=== PATIENT | female | born 1995 | race Caucasian/White ===

== ENCOUNTER 2017-06-22 14:16 | Emergency (ER) | payer OTHER ==
[2017-06-22 14:27] VITALS: BP 126/65
[2017-06-22] MEDS ORDERED: DIPH/PERTUSS(ACELL)/TETANUS VAC/PF 0.5 ML SYR (>=10YO) IM ONE (14:58)
--- NOTE | 2017-06-22 14:58 | ER Document Report ---
HPI - HPI Pain Level: 2 Notes: Patient is a 22-year-old female presents the ED complaining of a puncture wound to her right wrist while she was at work today. Patient states that she turned and hit her wrist against a nail that was sticking out of a piece of wood. Patient states that right after she had that she did pull away. Patient states the nail was somewhat dirty but not leonidas and when in approximately 1 inch. Patient states that she still has sensation to her hand without any hematoma or loss of movement in her hand or fingers. Patient states that she has not had a tetanus and she was a young child. Denies any history of MRSA. The pain does not radiate otherwise. Pain is worsened with supination. Denies any drug allergies, daily medications, significant past medical history otherwise. Patient denies any smoking or drug use. Denies any fever, headache, URI, chest pain, palpitations, syncope, cough, wheeze, shortness of breath, abdominal pain , nausea/vomiting/diarrhea, muscle paralysis/weakness, numbness/tingling, or rash otherwise. - ROS Notes: REVIEW OF SYSTEMS: CONSTITUTIONAL : Denies fever, chills, or sweats. Denies recent illness. EENT: Denies eye, ear, throat, or mouth pain or symptoms. Denies nasal or sinus congestion or discharge. Denies throat, tongue, or mouth swelling or difficulty swallowing. CARDIOVASCULAR: Denies chest pain. Denies palpitations or racing or irregular heart beat. Denies ankle edema. RESPIRATORY: Denies cough, cold, or chest congestion. Denies shortness of breath, difficulty breathing, or wheezing. GASTROINTESTINAL: Denies abdominal pain or distention. Denies nausea, vomiting , or diarrhea. Denies blood in vomitus, stools, or per rectum. Denies black, tarry stools. Denies constipation. GENITOURINARY: Denies difficulty urinating, painful urination, burning, frequency, blood in urine, or discharge. MUSCULOSKELETAL: see hpi SKIN: see hpi NEUROLOGICAL: Denies confusion or altered mental status. Denies passing out or loss of consciousness. Denies dizziness or lightheadedness. Denies headache. Denies weakness or paralysis or loss of use of either side. Denies problems with gait or speech. Denies sensory loss, numbness, or tingling. ALL OTHER SYSTEMS REVIEWED AND NEGATIVE. Dictation was performed using Dragon voice recognition software Past Medical History - Social History Smoking Status: Never Smoker Family History: Reviewed & Not Pertinent Renal/ Medical History: Denies: Hx Peritoneal Dialysis - Immunizations Hx Diphtheria, Pertussis, Tetanus Vaccination: - unknown Vertical Provider Document - CONSTITUTIONAL Agree With Documented VS: Yes Notes: PHYSICAL EXAMINATION: GENERAL: Well-appearing, well-nourished and in no acute distress. LUNGS: Breath sounds clear to auscultation bilaterally and equal. No wheezes rales or rhonchi. HEART: Regular rate and rhythm without murmurs, rubs, gallops. Musculoskeletal: Rt wrist/hand: FROM to passive/active. Strength/quality improvement consultant 5+/5. Sensation intact. Luis test did not show any perfusion deficits b/l. Pulse 2+. Cap refill <2 sec. A small puncture wound is noted to the medial slightly anterior distal forearm. Tinel/phalen negative. Extremities: No cyanosis, clubbing, or edema b/l. Peripheral pulses 2+. Capillary refill less than 3 seconds. NEUROLOGICAL: Cranial nerves grossly intact. Normal speech, normal gait. Normal sensory, motor exams PSYCH: Normal mood, normal affect. SKIN: Warm, Dry, normal turgor, no rashes or lesions noted.--See MSK exam as well. - INFECTION CONTROL TRAVEL OUTSIDE OF THE [place] IN LAST 30 DAYS: No - RESPIRATORY O2 Sat by Pulse Oximetry: 99 Course - Re-evaluation Re-evalutation: 06/22/17 15:43 Patient is an afebrile, well-hydrated, 22-year-old female presents the ED with a puncture wound to her right wrist from a nail. Vitals are stable. PE otherwise unremarkable. Patient is neurovascularly intact distally. Low suspicion for any retained foreign body, sepsis, fracture, compartment syndrome , severe nerve or tendon trauma. Puncture site was cleansed with iodine and alcohol pads. Tdap given today. I will send her home with Augmentin twice a day for 10 days as prophylactic. Conservative measures otherwise for symptoms. Recheck/establish with PCM this week. Return to the ED with any worsening/ concerning symptoms otherwise as reviewed in discharge. Patient is in agreement. - Vital Signs Vital signs: Temp Pulse Resp BP Pulse Ox 98.0 F 67 16 126/65 H 99 06/22/17 14:25 06/22/17 14:25 06/22/17 14:25 06/22/17 14:25 06/22/17 14:25 Discharge - Discharge Clinical Impression: Puncture wound Condition: Stable Disposition: HOME, SELF-CARE Instructions: Puncture Wound ([facility]) Additional Instructions: Keep the wound clean Wash with soap and water Apply bacitracin daily Take antibiotic as directed Recheck/establish with your PCM this week Reviewed the puncture wound handout Return to the ED with any worsening symptoms and/or development of fever, headache, chest pain, palpitations, syncope, shortness of breath, trouble breathing, abdominal pain, n/v/d,muscle weakness/paralysis, numbness/tingling, or other worsening symptoms that are concerning to you. Prescriptions: Amox Tr/Potassium Clavulanate [Augmentin 875-125 Tablet] 1 tab PO BID #20 tablet Forms: Elevated Blood Pressure Referrals: [facility] - Follow up as needed [facility] [Provider Group] - Follow up as needed [facility] [Provider Group] - Follow up as needed [facility] [Provider Group] - Follow up as needed
--- NOTE | 2017-06-22 15:37 | RADIOLOGY REPORT (SQ) ---
EXAM DESCRIPTION: WRIST RIGHT 3 VIEWS COMPLETED DATE/TIME: 06/22/2017 3:29 pm REASON FOR STUDY: puncture wound rt medial wrist with nail COMPARISON: None. NUMBER OF VIEWS: Three views. TECHNIQUE: AP, lateral, and oblique radiographic images acquired of the right wrist. LIMITATIONS: None. FINDINGS: MINERALIZATION: Normal. BONES: No acute fracture or dislocation. No worrisome bone lesions. Normal alignment. SOFT TISSUES: No soft tissue swelling. No foreign body. OTHER: No other significant finding. IMPRESSION: NEGATIVE STUDY OF THE RIGHT WRIST. NO RADIOGRAPHIC EVIDENCE OF ACUTE INJURY. TECHNICAL DOCUMENTATION: JOB ID: [id number] [employer]- All Rights Reserved
== END 2017-06-22 16:01 | disposition home or self-care (01) ==
LOC: ER 14:16
DX: S61.531A Puncture wound without foreign body of right wrist, initial encounter (principal); W45.0XXA Nail entering through skin, initial encounter; Y99.0 Civilian activity done for income or pay; Z23 Encounter for immunization
CPT/HCPCS: 90471; 90715; 99283

== ENCOUNTER → 2017-12-02 | Outpatient (CLI) | payer BC ==
--- NOTE | 2017-12-02 10:58 | WOMENS IMAGING REPORT ---
EXAM DESCRIPTION: U/S PELVIS NON-OB LIMITED COMPLETED DATE/TIME: 12/02/2017 8:11 am REASON FOR STUDY: ABDOMINAL TENDERNESS R10.819 ABDOMINAL TENDERNESS, UNSPECIFIED SITE COMPARISON: None. TECHNIQUE: Dynamic and static grayscale images acquired of the pelvis via transabdominal approach an d recorded on PACS. Additional selected color Doppler and spectral images recorded. LIMITATIONS: None. FINDINGS: UTERUS: Contour normal. No mass. Uterus is 8 x 4 x 3.5 cm in size ENDOMETRIAL STRIPE: No focal or generalized thickening. No masses. Endometrial stripe 8 mm in thickn ess CERVIX: No nabothian cysts. Closed. RIGHT OVARY: Right ovary is 4.1 x 3.2 x 2.7 cm in size with a 3 cm cyst. Right ovarian cyst has a th ick wall without septations. Follow-up ultrasound in 2 menstrual cycles is recommended to ensure krupa aring of this finding RIGHT OVARY DOPPLER: Normal arterial vascular flow without evidence for torsion. LEFT OVARY: No abnormal masses. Left ovary 3 x 3.1 x 1.7 cm in size LEFT OVARY DOPPLER: Normal arterial vascular flow without evidence for torsion. FREE FLUID: None noted. OTHER: No other significant finding. IMPRESSION: 3 cm right ovarian cyst. Follow-up in 1 to 2 menstrual cycles is recommended. Otherwise unremarkable pelvic ultrasound TECHNICAL DOCUMENTATION: JOB ID: [id number]- All Rights Reserved
--- NOTE | 2017-12-02 14:20 | WOMENS IMAGING REPORT ---
EXAM DESCRIPTION: U/S ABDOMEN TOTAL COMPLETED DATE/TIME: 12/02/2017 8:11 am REASON FOR STUDY: ABDOMINAL TENDERNESS R10.819 ABDOMINAL TENDERNESS, UNSPECIFIED SITE COMPARISON: None. TECHNIQUE: Dynamic and static grayscale images acquired of the abdomen and recorded on PACS. Additio nal selected color Doppler and spectral images recorded. LIMITATIONS: None. FINDINGS: PANCREAS: Midline pancreas unremarkable LIVER: No masses. Echotexture normal. LIVER VASCULATURE: Normal directional flow of the main portal vein and hepatic veins. GALLBLADDER: No stones. Normal wall thickness. No pericholecystic fluid. ULTRASOUND-DETECTED BOJORQUEZ'S SIGN: Negative. INTRAHEPATIC DUCTS AND COMMON DUCT: CBD and intrahepatic ducts normal caliber. No filling defects. INFERIOR VENA CAVA: Normal flow. AORTA: No aneurysm. RIGHT KIDNEY: Normal size. Normal echogenicity. No solid or suspicious masses. No hydronephros is. No calcifications. LEFT KIDNEY: Normal size. Normal echogenicity. No solid or suspicious masses. No hydronephrosi s. No calcifications. SPLEEN: Normal size. No solid masses. PERITONEAL AND PLEURAL SPACES: No ascites or effusions. OTHER: No other significant finding. IMPRESSION: NORMAL ABDOMINAL ULTRASOUND. TECHNICAL DOCUMENTATION: JOB ID: [id number] [employer]- All Rights Reserved
== END ==
LOC: WI 06:55
PROVIDERS: ATTEND Physician Assistant
DX: R10.819 Abdominal tenderness, unspecified site (principal)
CPT/HCPCS: 76700; 76857